=== PATIENT | female | born 1965 | race Caucasian/White ===

== ENCOUNTER 2019-04-13 05:00 | Emergency (ER) | payer OTHER ==
[~2019-04-13] VITALS: Ht 165.1 cm; Wt 87.3 kg
[2019-04-13 05:08] VITALS: BP 118/66
--- NOTE | 2019-04-13 05:08 | NUR ---
54 Y/O FEMALE BIB DAUGHTER FOR BODY ACHES, DIARRHEA, N/V, FEVER X 3 DAYS. PAIN IS A 5/10 NON-RADIATING SORE PAIN. A/OX4; FOLLOWS COMMANDS; BREATH SOUNDS CLEAR THROUGHOUT. PATIENT'S DAUGHTER STATES, "SHE HASN'T EATEN, AND I'VE BEEN GIVING HER PEDIALYTE." ERMD MADE AWARE OF STATUS. SIDE RAILSX1. DAUGHTER AT BEDSIDE. WILL CONTINUE TO MONITOR. PMH:DENIES RX: TYLENOL NEEDED NKDA
[2019-04-13] MEDS ORDERED: KETOROLAC 30 MG/ML VIAL IVP ONE (05:25)
[2019-04-13] MEDS ORDERED: ONDANSETRON 4 MG/2 ML VIAL IVP ONE (05:25)
[2019-04-13] MEDS ORDERED: NACL 0.9% 1,000 ML IV ONE (05:25)
[2019-04-13 06:04] LABS: BASOPHILS % (AUTO) 0.6 % (0.0-2.0); EOSINOPHILS # (AUTO) 0.2 K/uL (0-0.4); EOSINOPHILS % (AUTO) 3.3 % (0.0-4.0); HEMATOCRIT 48.3 % (36-48); HEMOGLOBIN 16.3 g/dL (12.0-16.0); LYMPHOCYTES # (AUTO) 1.1 K/uL (2.5-16.5); MEAN CORPUSCULAR HEMOGLOBIN 31 pg (27-31); MEAN CORPUSCULAR HGB CONC 34 g/dL (33-37); MEAN CORPUSCULAR VOLUME 90.2 fL (80-94); MONOCYTES # (AUTO) 0.8 K/uL (0.8-1.0); MONOCYTES % (AUTO) 10.7 % (1.7-9.3); NEUTROPHILS % (AUTO) 69.4 % (42.2-75.2); PLATELET COUNT (AUTO) 262 K/uL (140-450); RED BLOOD CELL COUNT(AUTO) 5.35 MIL/uL (4.20-5.40); RED CELL DISTRIBUTION WIDTH 14.9 % (11.6-13.7); WHITE BLOOD COUNT (AUTO) 7.1 K/uL (4.8-10.8)
[2019-04-13 06:12] LABS: CARBON DIOXIDE 25.9 mmol/L (21-32); CREATININE 1.1 mg/dL (0.6-1.3); POTASSIUM 3.9 mmol/L (3.5-5.1)
[2019-04-13 06:18] LABS: ALBUMIN 3.9 g/dL (3.4-5.0); TOTAL BILIRUBIN 0.5 mg/dL (0.0-1.0)
[2019-04-13 06:50] VITALS: BP 120/56
--- NOTE | 2019-04-13 06:50 | NUR ---
Patient discharged with v/s stable. Written and verbal after care instructions given and explained. Patient alert, oriented and verbalized understanding of instructions. Ambulatory with to car. All questions addressed prior to discharge. ID band removed. Patient advised to follow up with PMD. Rx of ZOFRAN given. Patient educated on indication of medication including possible reaction and side effects. Opportunity to ask questions provided and answered.
== END 2019-04-13 06:50 | disposition home or self-care (01) ==
LOC: MED 05:00
DX: A08.4 Viral intestinal infection, unspecified (principal); R11.2 Nausea with vomiting, unspecified
CPT/HCPCS: 36415; 74022; 80053; 83690; 85025; 87804; 96361; 96374; 96375; 99284; J1885; J2405; J7030

== ENCOUNTER 2021-12-11 07:01 | Emergency (ER) | payer OTHER ==
[~2021-12-11] VITALS: Ht 152.4 cm; Wt 90.3 kg
[~2021-12-11 07:01] MED LIST: HYDR-5122 PO
[2021-12-11 07:07] VITALS: BP 138/71
--- NOTE | 2021-12-11 07:11 | NUR ---
Dominique borrero in [facility] - 12/11/21 at 0713 by YANICK pt to bed 02
--- NOTE | 2021-12-11 07:13 | NUR ---
pt to bed 04.
--- NOTE | 2021-12-11 07:20 | NUR ---
C/O INTERMITENT RUQ ABD PAIN X 6 MONTHS AND ABD RASH X 3 DAYS. ABD SOFT.DENIES N/V/D; SKIN IS PINK/WARM/DRY; AAOX4 WITH EVEN AND STEADY GAIT; LUNGS CLEAR BL; HR EVEN AND REGULAR; PT DENIES ANY FEVER, CP, SOB, OR COUGH AT THIS TIME. PATIENT POSITIONED FOR COMFORT; HOB ELEVATED; BEDRAILS UP X1; BED DOWN. ER MD MADE AWARE OF PT STATUS.
[2021-12-11] MEDS ORDERED: HYD2.5O TP (07:24)
[2021-12-11] MEDS ORDERED: FAMO-92 PO (07:24)
[2021-12-11 07:35] VITALS: BP 103/59
--- NOTE | 2021-12-11 07:35 | NUR ---
Patient discharged with v/s stable. Written and verbal after care instructions given and explained. Patient alert, oriented and verbalized understanding of instructions. Ambulatory with steady gait. All questions addressed prior to discharge. ID band removed. Patient advised to follow up with PMD. Rx of pepcid, hydrocortisone given. Patient educated on indication of medication including possible reaction and side effects. Opportunity to ask questions provided and answered.
== END 2021-12-11 07:35 | disposition home or self-care (01) ==
LOC: MED 07:01
DX: K29.70 Gastritis, unspecified, without bleeding (principal); Z90.49 Acquired absence of other specified parts of digestive tract
CPT/HCPCS: 99282

== ENCOUNTER 2022-06-07 13:51 | Emergency (ER) | payer OTHER ==
[~2022-06-07] VITALS: Ht 152.4 cm; Wt 89.4 kg
[~2022-06-07 13:51] MED LIST changes: +FAMO-92 PO; +HYD2.5O TP
[2022-06-07 13:54] VITALS: BP 165/81
--- NOTE | 2022-06-07 14:02 | NUR ---
PT AMB TO BED 7.
--- NOTE | 2022-06-07 14:14 | NUR ---
[facility] CA EVALUATING PATIENT AT BEDSIDE
[2022-06-07 15:18] LABS: BASOPHILS # (AUTO) 0.1 K/uL (0.00-0.22); BASOPHILS % (AUTO) 0.9 % (0.0-2.0); EOSINOPHILS # (AUTO) 0.8 K/uL (0-0.4); EOSINOPHILS % (AUTO) 11.4 % (0.0-4.0); HEMATOCRIT 41.5 % (36-48); LYMPHOCYTES # (AUTO) 2.9 K/uL (2.5-16.5); LYMPHOCYTES % (AUTO) 39.1 % (20.5-51.1); MEAN CORPUSCULAR HEMOGLOBIN 30 pg (27-31); MEAN CORPUSCULAR HGB CONC 34 g/dL (33-37); MEAN CORPUSCULAR VOLUME 89.8 fL (80-94); MONOCYTES # (AUTO) 0.4 K/uL (0.8-1.0); MONOCYTES % (AUTO) 6.1 % (1.7-9.3); NEUTROPHILS # (AUTO) 3.1 K/uL (1.8-7.7); NEUTROPHILS % (AUTO) 42.5 % (42.2-75.2); PLATELET COUNT (AUTO) 284 K/uL (140-450); RED BLOOD CELL COUNT(AUTO) 4.62 MIL/uL (4.20-5.40); WHITE BLOOD COUNT (AUTO) 7.4 K/uL (4.8-10.8)
--- NOTE | 2022-06-07 15:32 | NUR ---
57 Y/O FEMALE BIB SELF C/O LUQ ABDOMINAL PAIN/LEFT FLANK PAIN X 1 YEAR AND NAUSEA X YESTERDAY. DENIES ANY DIARRHEA, VOMITING, MEDICATIONS FOR PAIN. DENIES ANY OTHER URINARY S/S. PMH: APPENDECTOMY KARLO
[2022-06-07 15:52] LABS: APPEARANCE,URINE CLEAR (CLEAR); BILIRUBIN,URINE NEGATIVE (NEGATIVE); BLOOD, URINE NEGATIVE (NEGATIVE); COLOR,URINE YELLOW (YELLOW); LEUKOCYTE ESTERASE ,URINE NEGATIVE (NEGATIVE); NITRITE, URINE NEGATIVE (NEGATIVE); UGLUCOSE NEGATIVE (NEGATIVE)
[2022-06-07 15:54] LABS: ALBUMIN 4.1 g/dL (3.4-5.0); ANION GAP 11.1 (8-16); CREATININE 0.9 mg/dL (0.6-1.3); POTASSIUM 4.1 mmol/L (3.5-5.1); TOTAL BILIRUBIN 0.3 mg/dL (0.0-1.0)
--- NOTE | 2022-06-07 16:24 | NUR ---
PT TAKEN TO CT VIA YANIV
[2022-06-07] MEDS ORDERED: OMEP40EC23 PO (17:04)
--- NOTE | 2022-06-07 17:21 | NUR ---
Patient discharged with v/s stable. Written and verbal after care instructions ABOUT ABD PAIN given and explained. Patient alert, oriented and verbalized understanding of instructions. Ambulatory with steady gait. All questions addressed prior to discharge. ID band removed. Patient advised to follow up with PMD. Rx of OMEPRAZOLE given. Patient educated on indication of medication including possible reaction and side effects. Opportunity to ask questions provided and answered.
== END 2022-06-07 17:21 | disposition home or self-care (01) ==
LOC: MED 13:51
DX: K29.70 Gastritis, unspecified, without bleeding (principal); Z79.899 Other long term (current) drug therapy; Z90.49 Acquired absence of other specified parts of digestive tract
CPT/HCPCS: 36415; 74177; 80053; 81003; 83690; 85025; 99285; Q9967

== ENCOUNTER 2023-03-09 23:02 | Emergency (ER) | payer OTHER ==
[~2023-03-09] VITALS: Ht 152.4 cm; Wt 90.7 kg
[~2023-03-09 23:02] MED LIST changes: +OMEP40EC23 PO
[2023-03-09 23:14] VITALS: BP 143/83; PULSE 75; RESP 16; TEMP 97.7; O2SAT 99
[2023-03-10 00:34] VITALS: O2SAT 99
[2023-03-10] MEDS ORDERED: KETOROLAC 30 MG/ML VIAL IVP ONE (01:05)
[2023-03-10 01:23] LABS: BASOPHILS # (AUTO) 0.1 K/uL (0.00-0.22); BASOPHILS % (AUTO) 1.4 % (0.0-2.0); EOSINOPHILS # (AUTO) 1.2 K/uL (0-0.4); EOSINOPHILS % (AUTO) 11.9 % (0.0-4.0); HEMATOCRIT 44.5 % (36-48); HEMOGLOBIN 14.9 g/dL (12.0-16.0); LYMPHOCYTES # (AUTO) 3.7 K/uL (2.5-16.5); LYMPHOCYTES % (AUTO) 36.1 % (20.5-51.1); MEAN CORPUSCULAR HEMOGLOBIN 30 pg (27-31); MEAN CORPUSCULAR HGB CONC 33 g/dL (33-37); MONOCYTES # (AUTO) 0.8 K/uL (0.8-1.0); MONOCYTES % (AUTO) 7.9 % (1.7-9.3); NEUTROPHILS # (AUTO) 4.3 K/uL (1.8-7.7); NEUTROPHILS % (AUTO) 42.7 % (42.2-75.2); PLATELET COUNT (AUTO) 304 K/uL (140-450); RED BLOOD CELL COUNT(AUTO) 4.94 MIL/uL (4.20-5.40); RED CELL DISTRIBUTION WIDTH 15.4 % (11.6-13.7); WHITE BLOOD COUNT (AUTO) 10.1 K/uL (4.8-10.8)
[2023-03-10 01:35] LABS: ANION GAP 10.1 (8-16); CALCIUM 9.3 mg/dL (8.5-10.1); CARBON DIOXIDE 27.7 mmol/L (21-32); POTASSIUM 3.8 mmol/L (3.5-5.1)
[2023-03-10 01:52] LABS: INR 0.91 (0.8-1.2); PROTHROMBIN TIME 9.6 secs (10.8-13.4)
[2023-03-10 01:54] LABS: APPEARANCE,URINE CLEAR (CLEAR); BILIRUBIN,URINE NEGATIVE (NEGATIVE); BLOOD, URINE NEGATIVE (NEGATIVE); COLOR,URINE YELLOW (YELLOW); LEUKOCYTE ESTERASE ,URINE 1+ (NEGATIVE); NITRITE, URINE NEGATIVE (NEGATIVE); PROTEIN,URINE NEGATIVE (NEGATIVE); UGLUCOSE NEGATIVE (NEGATIVE); UROBILINOGEN,URINE 0.2 EU/dL (0.2 - 1)
[2023-03-10 01:59] LABS: BACTERIA,URINE >30 (MANY) /HPF (None Seen); RBC,URINE 11-20 (MOD) /HPF (0-5); SQUAMOUS EPITHELIAL CELL,UR 0-3 (FEW) /LPF (0-3 (FEW))
[2023-03-10 02:07] LABS: MUCUS,URINE 1+ /LPF (None Seen)
[2023-03-10] MEDS ORDERED: cefTRIAXone 1,000 MG VIAL ONE (02:28)
[2023-03-10 02:31] VITALS: O2SAT 99
[2023-03-10] MEDS ORDERED: MELO-176 PO (03:43)
[2023-03-10] MEDS ORDERED: AMOX1TAB8 PO (03:43)
[2023-03-10 07:17] VITALS: BP 138/83; PULSE 65; RESP 18; O2SAT 99
== END 2023-03-10 07:18 | disposition home or self-care (01) ==
LOC: MED 23:02
DX: R07.81 Pleurodynia (principal); N39.0 Urinary tract infection, site not specified; R07.9 Chest pain, unspecified; Z79.899 Other long term (current) drug therapy; Z79.2 Long term (current) use of antibiotics
CPT/HCPCS: 36415; 71045; 71275; 80048; 81001; 83880; 84484; 85025; 85379; 85610; 85730; 87086; 93005; 96365; 96375; 99285; J0696; J1885; Q0092; Q9967